=== PATIENT | male | born 1990 | race Caucasian/White ===

== ENCOUNTER 2016-07-15 18:20 | Observation (INO) | payer OTHER ==
[2016-07-15] MEDS ORDERED: NS 1,000 ML IV ONE ×2 (18:38→20:11)
[2016-07-15] MEDS ORDERED: ONDANSETRON 4 MG/2 ML VIAL IVP ONE (18:38)
[2016-07-15 18:54] LABS: % IMMATURE GRANULYOCYTES 0.3 % (0.0-1.1); ABSOLUTE IMMATURE GRANULOCYTES 0.02 10^3/uL (0.00-0.10); ADD DIFF? NO; ADD MORPH? NO; ADD SCAN? NO; ATYPICAL LYMPHOCYTE FLAG 0 (0-99); FRAGMENT RBC FLAG 0 (0-99); HEMOGLOBIN 17.1 g/dL (13.7-17.5); LEFT SHIFT FLG 0 (0-99); LIPEMIA HEMOLYSIS FLAG 90 (0-99); MEAN CELL HEMOGLOBIN 29.5 pg (27.9-34.1); MEAN CELL HEMOGLOBIN CONCENTR. 34.9 g/dL (32.4-36.7); MEAN CELL VOLUME 84.6 fL (81.5-99.8); MEAN PLATELET VOLUME 9.4 fL (8.7-11.7); PLATELET CLUMPS FLAG 0 (0-99); PLATELET COUNT 270 10^3/uL (150-400); RED BLOOD CELL COUNT 5.79 10^6/uL (4.40-6.38)
[2016-07-15] MEDS ORDERED: IOPAMIDOL (ISOVUE-300) 100 ML BTL IV ONE (19:10)
--- NOTE | 2016-07-15 19:10 | EDPHY ---
H & P Stated Complaint: peiumbilical abd pain HPI/ROS: CHIEF COMPLAINT: Abdominal pain HISTORY OF PRESENT ILLNESS: sudden onset of periumbilical abdominal pain that started 2 hours ago. moderate to severe. Periumbilical and radiates into the general abdomen. Worse with palpation or movement. Improved with rest. No nausea or vomiting. diarrhea this morning no constipation or diarrhea this afternoon. No fever or chills. No bloody stools or emesis. Pain has been constant but does wax and wane. Never fully resolved. No alleviating factors other than rest. No other associated complaints factors REVIEW OF SYSTEMS: Ten systems reviewed and are negative unless otherwise noted in the HPI EXAMINATION: General Appearance: Alert, no distress Head: normocephalic, atraumatic Eyes: Pupils equal and round, no conjunctival pallor or injection ENT, Mouth: Mucous membranes moist. Uvula midline. No erythema or edema Neck: Normal inspection, supple, non-tender Respiratory: Lungs are clear to auscultation. No wheezing, rhonchi or consolidation Cardiovascular: Regular rate and rhythm. Pulses intact distally Gastrointestinal: Abdomen is soft and tender to palpation epigastrium periumbilical. There is guarding but no rigidity or tympany. No CVA tenderness Back: non-tender, no bony abnormalities Neurological: A&O, nonfocal, strength symmetric in all limbs Skin: Warm and dry, no rash Extremities: Nontender, no pedal edema Psychiatric: Mood and affect normal DIFFERENTIAL DIAGNOSES: Including but not limited to acute appendicitis, gastritis, enteritis, colitis , diverticulitis, duodenitis, pancreatitis MDM: abdominal pain of 2 hours duration with guarding on examination. I did order abdominal labs, pain medication IV fluid and CT scan after examination. He is well appearing with normal vitals, but he did have some guarding in the periumbilical region. No tympany or rigidity. CT scan was read as within normal limits other than an elongated, but non edematous appendix. Dr. Perez evaluated the patient as well and agrees with patient does have a peritonitic evaluation. He did immediately consult surgery. Dr. Hannon evaluate the patient in the ER and did offer diagnostic laparoscopy. The patient had think about this for nearly 0.5 hour then consented. The patient has been admitted to his service for diagnostic laparoscopy with appendectomy and procedures as indicated. He was admitted stable condition. Laboratory studies are all within normal limits. He was hemodynamically stable at all times for ED Precautions: Worsening pain. Fever. Bloody stools. Bloody emesis. Constipation or diarrhea. SUPERVISION: Patient was evaluated in conjunction with the supervising physician. Please see their note for details. Source: Patient Exam Limitations: No limitations - Personal History Current Tetanus/Diphtheria Vaccine: Unsure - Medical/Surgical History Hx Asthma: No Hx Chronic Respiratory Disease: No Hx Diabetes: No Hx Cardiac Disease: No Hx Renal Disease: No Hx Cirrhosis: No Hx Alcoholism: No Hx HIV/AIDS: No Hx Splenectomy or Spleen Trauma: No Other PMH: denies - Social History Smoking Status: Never smoked Constitutional: Initial Vital Signs Temperature (C) 98.8 F 07/15/16 18:25 Heart Rate 82 07/15/16 18:25 Respiratory Rate 18 07/15/16 18:25 Blood Pressure 112/70 07/15/16 18:25 O2 Sat (%) 98 07/15/16 18:25 O2 Delivery Mode Room Air Allergies/Adverse Reactions: No Known Allergies Allergy (Unverified 07/15/16 18:24) Home Medications: Medication Instructions Recorded NK [No Known Home Meds] 07/15/16 Medical Decision Making - Data Points Laboratory Results: Laboratory Results 07/15/16 18:45 07/15/16 18:45 07/15/16 07/15/16 22:28 18:45 WBC 7.12 10^3/uL (3.80-9.50) RBC 5.79 10^6/uL (4.40-6.38) Hgb 17.1 g/dL (13.7-17.5) Hct 49.0 % (40.0-51.0) MCV 84.6 fL (81.5-99.8) MCH 29.5 pg (27.9-34.1) MCHC 34.9 g/dL (32.4-36.7) RDW 12.0 % (11.5-15.2) Plt Count 270 10^3/uL (150-400) MPV 9.4 fL (8.7-11.7) Neut % (Auto) 41.7 % (39.3-74.2) Lymph % (Auto) 44.2 % (15.0-45.0) Burnett % (Auto) 8.0 % (4.5-13.0) Eos % (Auto) 4.8 % (0.6-7.6) Baso % (Auto) 1.0 % (0.3-1.7) Nucleat RBC Rel Count 0.0 % (0.0-0.2) Absolute Neuts (auto) 2.97 10^3/uL (1.70-6.50) Absolute Lymphs (auto) 3.15 H 10^3/uL (1.00-3.00) Absolute Monos (auto) 0.57 10^3/uL (0.30-0.80) Absolute Eos (auto) 0.34 10^3/uL (0.03-0.40) Absolute Basos (auto) 0.07 10^3/uL (0.02-0.10) Absolute Nucleated RBC 0.00 10^3/uL (0-0.01) Immature Gran % 0.3 % (0.0-1.1) Immature Gran # 0.02 10^3/uL (0.00-0.10) Sodium 142 mEq/L (134-144) Potassium 4.2 mEq/L (3.5-5.2) Chloride 104 mEq/L (97-110) Carbon Dioxide 24 mEq/l (22-31) Anion Gap 14 mEq/L (8-16) BUN 14 mg/dL (7-23) Creatinine 1.0 mg/dL (0.7-1.3) Estimated GFR > 60 Glucose 92 mg/dL (70-100) Calcium 9.8 mg/dL (8.5-10.4) Total Bilirubin 0.6 mg/dL (0.1-1.4) Conjugated Bilirubin 0.4 mg/dL (0.0-0.5) Unconjugated Bilirubin 0.2 mg/dL (0.0-1.1) AST 24 IU/L (17-59) ALT 38 IU/L (21-72) Alkaline Phosphatase 70 IU/L (38-126) Total Protein 7.9 g/dL (6.3-8.2) Albumin 4.6 g/dL (3.5-5.0) Lipase 93.0 IU/L (23-300) Urine Color YELLOW Urine Appearance CLEAR Urine pH 7.0 (5.0-7.5) Ur Specific [place] > 1.035 H (1.002-1.030) Urine Protein NEGATIVE (NEGATIVE) Urine Ketones TRACE H (NEGATIVE) Urine Blood NEGATIVE (NEGATIVE) Urine Nitrate NEGATIVE (NEGATIVE) Urine Bilirubin NEGATIVE (NEGATIVE) Urine Urobilinogen NEGATIVE EU (0.2-1.0) Ur Leukocyte Esterase NEGATIVE (NEGATIVE) Ur Culture Indicated? NOT INDICATED (NI) Urine Glucose NEGATIVE (NEGATIVE) Medications Given: Discontinued Medications Hydromorphone HCl (Dilaudid) 1 mg IVP EDNOW ONE Stop: 07/15/16 19:32 Last Admin: 07/15/16 20:01 Dose: 1 mg Sodium Chloride (Ns) 1,000 mls @ 0 mls/hr IV ONCE ONE PRN Reason: Wide Open Stop: 07/15/16 18:39 Last Admin: 07/15/16 18:45 Dose: 1,000 mls Sodium Chloride (Ns) 1,000 mls @ 0 mls/hr IV ONCE ONE PRN Reason: Wide Open Stop: 07/15/16 20:12 Last Admin: 07/15/16 21:02 Dose: 1,000 mls Morphine Sulfate (Morphine) 6 mg IVP EDNOW ONE Stop: 07/15/16 18:39 Last Admin: 07/15/16 18:59 Dose: 6 mg Morphine Sulfate (Morphine) 2 mg IVP EDNOW ONE Stop: 07/15/16 21:02 Last Admin: 07/15/16 21:02 Dose: 2 mg Ondansetron HCl (Zofran) 4 mg IVP EDNOW ONE Stop: 07/15/16 18:39 Last Admin: 07/15/16 18:59 Dose: 4 mg Departure - Departure Disposition: To OP Cath/Surgery Clinical Impression: Abdominal pain Qualifiers: Abdominal location: right lower quadrant Qualifier Code: (R10.31) Right lower quadrant pain Acute appendicitis Qualifiers: Acute appendicitis type: with localized peritonitis Qualifier Code: (K35.3) Acute appendicitis with localized peritonitis Condition: Good Referrals: BARBRA JOSE [Primary Care Provider] - As per Instructions
[2016-07-15 19:20] LABS: ALANINE AMINOTRANSFERASE 38 IU/L (21-72); ALBUMIN 4.6 g/dL (3.5-5.0); ALKALINE PHOSPHATASE 70 IU/L (38-126); ANION GAP 14 mEq/L (8-16); ASPARTATE AMINOTRANSFERASE 24 IU/L (17-59); BILIRUBIN,TOTAL 0.6 mg/dL (0.1-1.4); BILIRUBIN-CONJUGATED 0.4 mg/dL (0.0-0.5); BILIRUBIN-UNCONJUGATED 0.2 mg/dL (0.0-1.1); CALCIUM 9.8 mg/dL (8.5-10.4); CARBON DIOXIDE 24 mEq/l (22-31); CHLORIDE 104 mEq/L (97-110); GLOMERULAR FILTRATION RATE > 60; GLUCOSE 92 mg/dL (70-100); POTASSIUM 4.2 mEq/L (3.5-5.2); SODIUM 142 mEq/L (134-144); TOTAL PROTEIN 7.9 g/dL (6.3-8.2)
[2016-07-15] MEDS ORDERED: HYDROmorphONE/DILAUDID 1 MG/ML SYR IVP ONE ×2 (19:31→20:11)
--- NOTE | 2016-07-15 19:58 | CT ---
CT Abdomen and Pelvis With Contrast History: Right-sided pain in a 26-year-old male, possible appendicitis. Technique: A helical CT volumetric data set is acquired through the abdomen and pelvis after bolus a dministration of 90 mL of Isovue-300. Axial images are obtained at 5 mm thickness with reformations p erformed at 1.50 mm intervals. Sagittal and coronal reformations are performed and the examination is reviewed on the workstation at multiple window/level settings. Dose reduction techniques were utiliz ed. Findings: Abdomen: Lung bases are clear. Liver and spleen look normal as do the pancreas, kidneys and retroper itoneum. There is no evidence for bowel obstruction. Pelvis: There is a normal appendix. There is no free air or free fluid. Minimal disk space loss is no yulissa at L5-S1. No acute osseous abnormality is seen. Impression: 1. No evidence for appendicitis. 2. See above report for additional findings. A preliminary report was called to Dr. Sánchez at 1955 hours in the Emergency Department.
--- NOTE | 2016-07-15 20:54 | US ---
Complete Abdominal Sonogram Indications: Abdominal pain. Technique: Longitudinal and transverse transabdominal images are obtained. Color Doppler evaluation i s employed for assessment of vascularity. The examination is interpreted in conjunction with CT of the abdomen and pelvis performed earlier toemelyn hammond. Findings: The liver is normal size measuring 14 cm in the midaxillary line. The liver has normal echo genicity and echotexture. The hepatic contour is normal. Portal vein patency is documented. No sonogr aphic mass or biliary dilation is identified. The gallbladder is unremarkable. There are no intraluminal stones, sludge, wall thickening or sonogra phic Arreola sign. Common bile duct is normal caliber and measures 4 mm in diameter. The kidneys are unremarkable with no hydronephrosis. The right kidney measures 9.8 cm in cephalocauda l height and the left kidney measures 10.0 cm. Cortical thickness is estimated at 1.4 cm on the right and at 1.5 cm on the left. No free fluid is seen. The pancreas is normal. The spleen is normal size measuring cm. The abdomina l aorta is normal caliber and tapers normally. Impression: Normal complete abdominal sonography. A source for the patient's symptomatology is not i dentified. A preliminary report was called to Dr. Sánchez at 2055 hours in the Emergency Department.
--- NOTE | 2016-07-15 21:57 | GHP ---
[f rep st] PREOP HISTORY AND PHYSICAL DATE OF ADMISSION: 07/15/2016 CHIEF COMPLAINT: Abdominal pain. 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 He states the pain was initially superior to the umbilicus in a bandlike fashion. It has now radiated more so to the right lower quadrant. He describes it as a bunch of knives stabbing him, at worst intensity 10/10 without radiation. In addition to the pain, he denies having any nausea, vomiting, fevers, or chills but presented because of the persistent and worsening pain. In the emergency department, he has received IV fluids in addition to IV narcotics which have somewhat taken the pain down, but it still persists despite. His last bowel movement was earlier today, and he states that it was somewhat loose. He continues to urinate without any issues. He does endorse eating some beef that may be questionable lately, but the other people who ate it as well have no current symptoms of abdominal pain or anything that would be consistent with food borne illness. He denies having any past medical history consistent with inflammatory bowel disease. PAST MEDICAL HISTORY, FAMILY HISTORY: He states that he has no significant past medical history or family history. PAST SURGICAL HISTORY: Tonsillectomy performed as a child. CURRENT MEDICATIONS: None. ALLERGIES: None. REVIEW OF SYSTEMS: A full 10-point review was performed and unless explicitly stated above is otherwise negative. PHYSICAL EXAM: VITAL SIGNS: Temperature 37.1, blood pressure 112/70, heart rate 78, and he is 96% on room air. GENERAL: He is alert and oriented, in no acute distress. CV: He has a regular rate and rhythm. LUNGS: Clear. ABDOMEN : Soft, tender to palpation in the right lower quadrant with rebound tenderness and guarding. No mass is appreciated. EXTREMITIES: Warm. LABS: White blood cell count 7 with no left shift. H and H are stable. Chemistry is within normal limits. CT scan of the abdomen and pelvis shows an appendix with air within the tip, possible inflammation at the base, but otherwise unremarkable. ASSESSMENT/PLAN: 26-year-old male with acute onset abdominal pain, query appendicitis. I had a long discussion with the patient that while he does not have a slam dunk diagnosis of appendicitis, there are not many other things that this could be. I recommended laparoscopic appendectomy and have discussed the risks, benefits, and alternatives. We will plan for OR as time permits. /[id number]/MODL MTDD
[2016-07-15] MEDS ORDERED: CEFAZOLIN 2 GM/DEXTROSE/100 ML BAG IV ONE (22:36)
[2016-07-15] MEDS ORDERED: ceFAZolin 2 GM/DEXTROSE 100 ML IV ONE (22:36)
[2016-07-15] MEDS ORDERED: BUPIVACAINE/EPI 0.25% 30 ML SDV ONE ×2 (22:40→23:00)
[2016-07-15] MEDS ORDERED: SKIN ADHESIVE (DERMABOND) 1 EACH TP ONE (22:40)
[2016-07-15] MEDS ORDERED: MIDAZOLAM 2 MG/2 ML VIAL ONE (22:45)
[2016-07-15] MEDS ORDERED: fentaNYL 100 MCG/2 ML INJ ONE ×2 (22:49→23:56)
[2016-07-15] MEDS ORDERED: PROPOFOL 200 MG/20 ML VIAL ONE (22:49)
[2016-07-15] MEDS ORDERED: KETOROLAC 30 MG/1 ML SDV ONE (22:49)
[2016-07-15] MEDS ORDERED: LIDOCAINE 2% 5 ML SDV ONE (22:49)
[2016-07-15] MEDS ORDERED: DEXAMETHASONE 4 MG/ML VIAL ONE ×2 (22:49→22:50)
[2016-07-15] MEDS ORDERED: ONDANSETRON 4 MG/2 ML VIAL ONE (22:49)
[2016-07-15] MEDS ORDERED: ROCURONIUM 50 MG/5 ML VIAL ONE (22:50)
[2016-07-15 22:55] LABS: COLOR YELLOW; LEUKOCYTE ESTERASE,URINE NEGATIVE (NEGATIVE); NITRITE,URINE NEGATIVE (NEGATIVE)
[2016-07-15] MEDS ORDERED: GLYCOPYRROLATE 0.2 MG/1 ML VIAL ONE ×2 (23:29)
[2016-07-15] MEDS ORDERED: NEOSTIGMINE METHYLSULFATE 5 MG/5 ML SYR ONE (23:29)
[2016-07-15] MEDS ORDERED: HYDROmorphONE/DILAUDID 1 MG/ML SYR IVP PRN (23:41)
[2016-07-15] MEDS ORDERED: ONDANSETRON 4 MG/2 ML VIAL IVP PRN (23:41)
--- NOTE | 2016-07-15 23:43 | POSTOPPROG ---
Post Op Note Date of Operation: 07/15/16 Surgeon: Oniel Hannon Anesthesiologist: Yi Anesthesia: GET(General Endotracheal) Pre-op Diagnosis: appendicitis Post-op Diagnosis: same Procedure: lap appy Findings: indurated appendix Inf/Abcess present in the surg proc area at time of surgery?: No EBL: Minimal Specimen(s): appendix
[2016-07-15] MEDS ORDERED: D5W 1/2 NS W/ 20 KCl/L 1,000 ML IV SCH (23:45)
[2016-07-16] VITALS: RESP 16
[2016-07-16] MEDS: HYDROCODONE/APAP 5/325 TAB PO PRN ×3 (01:18→14:27)
[2016-07-16] MEDS ORDERED: IBUPROFEN 600 MG TAB PO SCH (06:00)
--- NOTE | 2016-07-16 08:43 | SOAPPROG ---
SOHUMPHREY Progress Note Assessment/Plan: Assessment/Plan - 26yo M POD1 s/p lappy - looks good, pain appropriate. BKFST this AM, if does well will plan for home later today 07/16/16 08:42 Subjective: sleepy, pain appropriate. Objective: Vital Signs Temp Pulse Resp BP Pulse Ox 36.7 C 81 16 107/62 97 07/16/16 07:51 07/16/16 07:51 07/16/16 07:51 07/16/16 07:51 07/16/16 07:51 07/15/16 07/16/16 07/17/16 05:59 05:59 05:59 Intake Total 850 Output Total 10 Balance 840 ICD10 Worksheet Patient Problems: Problems Problem Status Diagnosed Abdominal pain Acute Acute appendicitis Acute
[2016-07-16] MEDS ORDERED: ACETAMINOPHEN 325 MG TAB PO PRN (11:40)
[2016-07-16 11:42] VITALS: BP 97/49; PULSE 64; TEMP 97.9; O2SAT 94
== END 2016-07-16 14:44 | disposition home or self-care (01) ==
LOC: INTOOBSV 22:03 → F3E 07-16 00:18
PROVIDERS: ADMIT Surgery; ATTEND Surgery
PROC: 0DTJ4ZZ Resection of Appendix, Percutaneous Endoscopic Approach (ICD-10-PCS; principal; 2016-07-15 22:53)
DX: K35.80 Unspecified acute appendicitis (principal); R10.33 Periumbilical pain
CPT/HCPCS: 96374; G0378; J0690; J1100; J1170; J1885; J2250; J2405; J2704; J2710; J3010; Q9967